=== PATIENT | female | born 1980 | race Caucasian/White ===

== ENCOUNTER 2022-12-30 09:22 | Outpatient (CLI) | payer OTHER, SELFPAY | END 2022-12-30 09:23 | disposition home or self-care (01) | PROVIDERS: PCP Family Medicine; Visit Provider Family Medicine | DX: Z01.419 Encounter for gynecological examination (general) (routine) without abnormal findings (principal); R73.03 Prediabetes; E66.9 Obesity, unspecified; R53.83 Other fatigue | CPT/HCPCS: 80048; 80061; 84443 ==

== ENCOUNTER 2023-11-08 14:05 | Outpatient (CLI) | payer OTHER, SELFPAY ==
--- NOTE | 2023-11-08 14:40 | CRLHL7_ITS ---
For Patients: As a result of the Century Cures Act, medical imaging exams and procedure reports are released immediately into your electronic medical record. You may view this report before your referring provider. If you have questions, please contact your health care provider. BILATERAL SCREENING MAMMOGRAM WITH COMPUTER-AIDED DETECTION AND TOMOSYNTHESIS TECHNIQUE: CC and MLO views were obtained. These mammographic images have been obtained using full-field digital technique. These mammographic images were interpreted with the benefit of computer-aided detection. Breast Tomosynthesis was used in this interpretation. COMPARISON FILM: 12/28/20, 01/29/19. FINDINGS: There are scattered areas of fibroglandular density IMPRESSION: There is no radiographic evidence for malignancy. ASSESSMENT: BI-RADS Category 2: Benign RECOMMENDATION: Routine screening mammogram in 1 year. A lay language report of this examination will be provided to the patient. Lebron Tony M.D. Diagnostic Radiologist [email or web address] Transcribed: 12:53 p.lamar smith/Dictated by: Lebron Tony MD @ 11/10/2023 12:24:00 PM (Electronically Signed)
== END 2023-11-08 14:06 | disposition home or self-care (01) ==
LOC: MAMMO 14:05
PROVIDERS: PCP Family Medicine; Visit Provider Family Medicine
DX: Z12.31 Encounter for screening mammogram for malignant neoplasm of breast (principal)
CPT/HCPCS: 77063; 77067

== ENCOUNTER 2024-01-05 09:02 | Outpatient (CLI) | payer OTHER, SELFPAY | END 2024-01-05 09:03 | disposition home or self-care (01) | PROVIDERS: PCP Family Medicine; Visit Provider Family Medicine | DX: Z00.00 Encounter for general adult medical examination without abnormal findings (principal); E11.9 Type 2 diabetes mellitus without complications; E66.9 Obesity, unspecified; R73.03 Prediabetes; Z13.6 Encounter for screening for cardiovascular disorders; Z13.9 Encounter for screening, unspecified | CPT/HCPCS: 80048; 80061 ==

== ENCOUNTER 2025-03-17 14:48 | Outpatient (CLI) | payer OTHER, SELFPAY ==
--- NOTE | 2025-03-17 15:00 | CRLHL7_ITS ---
For Patients: As a result of the Century Cures Act, medical imaging exams and procedure reports are released immediately into your electronic medical record. You may view this report before your referring provider. If you have questions, please contact your health care provider. BILATERAL DIGITAL SCREENING MAMMOGRAM WITH COMPUTER-AIDED DETECTION AND TOMOSYNTHESIS CLINICAL HISTORY: Routine screening exam. COMPARISON: 11/08/2023, 12/28/2020, 01/29/2019. TECHNIQUE: Digital mammogram in CC and MLO projections including computer-aided detection (CAD). Tomosynthesis was used in this interpretation. BREAST COMPOSITION: There are scattered areas of fibroglandular density. FINDINGS: RIGHT Breast: Focal asymmetric density within the upper-outer quadrant 10 cm from the nipple. LEFT Breast: No suspicious findings. IMPRESSION: RIGHT breast asymmetry/mass. RECOMMENDATIONS: Additional mammographic views of the RIGHT breast including 3D spot-compression CC/MLO. RIGHT breast ultrasound may also be required. [facility] will contact the patient. A lay language report of this examination will be provided to the patient. BI-RADS Category 0: Incomplete: Need Additional Imaging Evaluation Dictated by Lebron Tony MD @ 03/18/2025 10:28:48 AM/CRL:[email or web address] FRAGA/Dictated by: Lebron Tony MD @ 03/18/2025 10:28:00 AM (Electronically Signed)
== END 2025-03-17 14:49 | disposition home or self-care (01) ==
LOC: MAMMO 14:48
PROVIDERS: PCP Family Medicine; Visit Provider Family Medicine
DX: Z12.31 Encounter for screening mammogram for malignant neoplasm of breast (principal); N63.10 Unspecified lump in the right breast, unspecified quadrant
CPT/HCPCS: 77063; 77067

== ENCOUNTER 2025-03-28 07:27 | Outpatient (CLI) | payer OTHER, SELFPAY ==
--- NOTE | 2025-03-28 07:45 | CRLHL7_ITS ---
For Patients: As a result of the Cures Act, medical imaging exams and procedure reports are released immediately into your electronic medical record. You may view this report before your referring provider. If you have questions, please contact your health care provider. DIGITAL DIAGNOSTIC RIGHT MAMMOGRAM USING TOMOSYNTHESIS RIGHT BREAST ULTRASOUND CLINICAL HISTORY: RIGHT breast mass/asymmetry. COMPARISON: 03/17/2025, 11/08/2023, 12/28/2020. TECHNIQUE: Digital RIGHT mammogram in two projections. Tomosynthesis was used in this interpretation. Real-time ultrasound imaging of RIGHT breast with imaging documentation. BREAST COMPOSITION: There are scattered areas of fibroglandular density. FINDINGS: 3D spot compression CC/MLO RIGHT breast mammogram images submitted. Decreased conspicuity of the previously noted asymmetric density. No architectural distortion or suspicious calcifications. No adenopathy. Targeted RIGHT breast ultrasound performed at 12 o`clock 10 cm from the nipple. Normal fibroglandular tissue is present. No fibrocystic change or mass. No suspicious findings. IMPRESSION: No evidence of malignancy. RECOMMENDATIONS: Routine screening mammography. A lay language report of this examination will be provided to the patient. BI-RADS Category 2: Benign Dictated by Lebron Tony MD @ 03/28/2025 9:18:22 AM jj/Dictated by: Lebron Tony MD @ 03/28/2025 9:18:00 AM (Electronically Signed)
--- NOTE | 2025-03-28 08:15 | CRLHL7_ITS ---
For Patients: As a result of the Cures Act, medical imaging exams and procedure reports are released immediately into your electronic medical record. You may view this report before your referring provider. If you have questions, please contact your health care provider. SEE DIGITAL DIAGNOSTIC RIGHT MAMMOGRAM PERFORMED SAME DAY CRL:[email or web address] smith/Dictated by: Lebron Tony MD @ 03/28/2025 12:03:00 PM (Electronically Signed)
== END 2025-03-28 07:28 | disposition home or self-care (01) ==
LOC: MAMMO 07:28
PROVIDERS: PCP Family Medicine; Visit Provider Family Medicine
DX: N63.10 Unspecified lump in the right breast, unspecified quadrant (principal); R92.8 Other abnormal and inconclusive findings on diagnostic imaging of breast
CPT/HCPCS: 76642; 77065; G0279

== ENCOUNTER 2025-04-02 09:25 | Outpatient (CLI) | payer OTHER, SELFPAY | END 2025-04-02 09:26 | disposition home or self-care (01) | LOC: FBOREF 09:28 | PROVIDERS: PCP Family Medicine; Visit Provider Family Medicine | DX: E03.9 Hypothyroidism, unspecified (principal); E28.2 Polycystic ovarian syndrome; Z13.6 Encounter for screening for cardiovascular disorders; Z13.9 Encounter for screening, unspecified | CPT/HCPCS: 80048; 80061; 84443 ==